=== PATIENT | female | born 2000 | race Two or more races ===

== ENCOUNTER 2022-05-25 09:57 | Outpatient (CLI) | payer OTHER ==
[~2022-05-25] VITALS: Ht 167.6 cm; Wt 78.9 kg
[2022-05-25] MEDS ORDERED: PRENATAL + DHA1 EAC1 PO (10:08)
== END 2022-05-26 11:36 | disposition home or self-care (01) ==
LOC: OBS/DEL 09:57
PROVIDERS: ATTEND Obstetrics & Gynecology
DX: O26.893 Other specified pregnancy related conditions, third trimester (principal); Z3A.29 29 weeks gestation of pregnancy; N93.0 Postcoital and contact bleeding; R10.2 Pelvic and perineal pain

== ENCOUNTER 2022-08-04 02:20 | Inpatient (IN) | payer OTHER ==
[~2022-08-04] VITALS: Ht 167.6 cm; Wt 88.5 kg
[~2022-08-04 02:20] MED LIST: PRENATAL + DHA1 EAC1 PO
[2022-08-04] MEDS ORDERED: FOLIC ACID0.8 M1 (02:23)
== END 2022-08-06 13:48 | disposition home or self-care (01) | DRG 807 ==
LOC: OBS/DEL 02:20 → LDR 03:11 → OB/GYN 03:11
PROVIDERS: ADMIT Obstetrics & Gynecology; ATTEND Obstetrics & Gynecology
PROC: 10E0XZZ Delivery of Products of Conception, External Approach (ICD-10-PCS; principal; 2022-08-04)
PROC: 4A1HXCZ Monitoring of Products of Conception, Cardiac Rate, External Approach (ICD-10-PCS; 2022-08-04)
DX: O80 Encounter for full-term uncomplicated delivery (principal); Z37.0 Single live birth; Z3A.38 38 weeks gestation of pregnancy; Z20.822 Contact with and (suspected) exposure to COVID-19

== ENCOUNTER 2023-08-07 08:05 | Outpatient (CLI) | payer OTHER ==
[~2023-08-07 08:05] MED LIST changes: +FOLIC ACID0.8 M1
== END 2023-08-07 08:07 | disposition home or self-care (01) ==
LOC: PRENATAL 08:05
PROVIDERS: ATTEND Obstetrics & Gynecology Maternal & Fetal Medicine
DX: O36.80X0 Pregnancy with inconclusive fetal viability, not applicable or unspecified (principal); Z36.82 Encounter for antenatal screening for nuchal translucency; Z3A.14 14 weeks gestation of pregnancy

== ENCOUNTER → 2023-09-16 08:17 | Outpatient (CLI) | payer OTHER | END | disposition home or self-care (01) | LOC: PRENATAL 08:17 | PROVIDERS: ATTEND Obstetrics & Gynecology Maternal & Fetal Medicine | DX: O35.3XX0 Maternal care for (suspected) damage to fetus from viral disease in mother, not applicable or unspecified (principal); O44.00 Complete placenta previa NOS or without hemorrhage, unspecified trimester; Z3A.20 20 weeks gestation of pregnancy ==

== ENCOUNTER 2024-02-01 14:27 | Inpatient (IN) | payer OTHER ==
[~2024-02-01] VITALS: Ht 167.6 cm; Wt 87.1 kg
[2024-02-01] MEDS ORDERED: RINGERS SOLUTION,LACTATED 1,000 ML IV SCH (14:45)
[2024-02-01] MEDS ORDERED: PRENATAL CAPLE1 EAC1 PO (14:46)
[2024-02-01 15:21] LABS: URINE APPEARANCE Clear; URINE BILIRRUBIN Negative (NEGATIVE); URINE BLOOD Negative; URINE COLOR Yellow; URINE GLUCOSE Negative (NEGATIVE); URINE LEUKOCYTE Negative; URINE NITRATE Negative; URINE PROTEIN Negative (NEGATIVE); URINE UROBILINOGEN 0.2 E.U./dl
[2024-02-01 15:24] LABS: URINE BACTERIA 129.7 uL (0.0-1933); URINE EPITHELIAL CELLS 5.3 uL (0.0-38.8); URINE WBC 2.9 uL (0.0-23.2)
[2024-02-01 15:25] LABS: URINE RBC 0.4 uL (0.0-20.8)
[2024-02-01 15:30] LABS: INR < 0.93; PROTHROMBIN TIME 9.6 SECONDS (9.0-11.5)
[2024-02-01 15:34] LABS: HEMATOCRIT 26.6 % (36.0-45.00); MEAN CORPUSCULAR HGB CONC 32.2 g/dl (32.0-36.0); PLATELET COUNT 218 K/uL (150-450); RED BLOOD COUNT 3.88 M/uL (4.00-6.00); RED CELL DISTRIBUTION WIDTH 16.6 % (11.5-14.5)
[2024-02-01 15:36] LABS: ALBUMIN 2.4 gm/dL (3.4-5.0); BILIRUBIN TOTAL 0.51 mg/dL (0.3-1.2); CALCIUM 8.7 mg/dL (8.5-10.1); CREATININE SERUM 0.64 mg/dL (0.55-1.02); GLOBULINA 4.1 G/DL (2.4-3.5); POTASSIUM 3.93 mEq/L (3.5-5.1); TOTAL PROTEIN 6.5 gm/dL (6.4-8.2)
[2024-02-01 15:45] LABS: HEMOGLOBIN 8.6 g/dL (12.0-15.00); MEAN CELL VOLUME 68.6 fL (80.00-100.00); MEAN CORPUSCULAR HEMOGLOBIN 22.1 pg (27.00-32.0)
[2024-02-01] MEDS ORDERED: MORPHINE SULFATE 4 MG/ML VIAL IV ONE (22:45)
[2024-02-02] MEDS ORDERED: MORPHINE SULFATE 4 MG/ML CARTRIDGE IV ONE (04:30)
[2024-02-02] MEDS ORDERED: OXYTOCIN 500 ML IV SCH (04:30)
[2024-02-02] MEDS ORDERED: ERYTHROMYCIN BASE 1 GM TUBE OP ONE (05:15)
[2024-02-02] MEDS ORDERED: IBUprofen 400 MG TABLET PO PRN (05:15)
[2024-02-02] MEDS ORDERED: CHLORHEXIDINE GLUCONATE 120 ML BOTTLE TOP ONE (06:00)
[2024-02-02] MEDS ORDERED: OXYTOCIN 1,000 ML IV SCH (06:00)
[2024-02-02] MEDS ORDERED: LIDOCAINE HCL 1% 10ML VIAL IJ ONE (06:00)
[2024-02-02] MEDS ORDERED: PNV,CALCIUM 72/IRON/FOLIC ACID 1 TAB TABLET PO SCH (09:00)
[2024-02-02 13:44] LABS: HEMATOCRIT 23.9 % (36.0-45.00); MEAN CORPUSCULAR HGB CONC 32.5 g/dl (32.0-36.0); PLATELET COUNT 193 K/uL (150-450); RED BLOOD COUNT 3.49 M/uL (4.00-6.00)
[2024-02-02 13:46] LABS: MEAN CORPUSCULAR HEMOGLOBIN 22.3 pg (27.00-32.0)
[2024-02-02 13:47] LABS: HEMOGLOBIN 7.8 g/dL (12.0-15.00); MEAN CELL VOLUME 68.5 fL (80.00-100.00)
== END 2024-02-04 08:56 | disposition home or self-care (01) | DRG 807 ==
LOC: LDR 14:27 → OB/GYN 14:27
PROVIDERS: Obstetrics & Gynecology; ADMIT Obstetrics & Gynecology; ATTEND Obstetrics & Gynecology
PROC: 4A1HXCZ Monitoring of Products of Conception, Cardiac Rate, External Approach (ICD-10-PCS; 2024-02-01)
PROC: 10E0XZZ Delivery of Products of Conception, External Approach (ICD-10-PCS; principal; 2024-02-02)
PROC: 0KQM0ZZ Repair Perineum Muscle, Open Approach (ICD-10-PCS; 2024-02-02)
DX: O70.1 Second degree perineal laceration during delivery (principal); Z37.0 Single live birth; Z3A.40 40 weeks gestation of pregnancy; Z20.822 Contact with and (suspected) exposure to COVID-19